=== PATIENT | female | born 1990 | race Two or more races ===

== ENCOUNTER 2021-07-12 05:51 | Inpatient (IN) | payer BC ==
[2021-07-12] MEDS ORDERED: Misoprostol 25 MCG (1/4 of 100 MCG) Tab ONE ×2 (08:34→08:35)
[2021-07-12] MEDS ORDERED: Sodium Chloride 0.9% 10 ML Syringe FLUSH PRN (08:53)
[2021-07-12] MEDS ORDERED: Misoprostol 25 MCG (1/4 of 100 MCG) Tab VAG PRN (08:53)
[2021-07-12] MEDS ORDERED: Nalbuphine 10 MG/1 ML Vial IVPUSH PRN (08:53)
[2021-07-12] MEDS ORDERED: Lactated Ringers 1,000 ML IV SCH (09:00)
[2021-07-12] MEDS ORDERED: Oxytocin/Lactated Ringers 10 UNIT/1,000 ML BAG IV SCH ×2 (09:00→20:45)
[2021-07-12] MEDS ORDERED: fentaNYL 100 MCG/2 ML SDV EPIDUR PRN (09:44)
[2021-07-12] MEDS ORDERED: ePHEDrine 50 MG/ML SDV IVPUSH PRN (09:44)
[2021-07-12] MEDS ORDERED: Bupivacaine/fentaNYL/NS 100 ML Bag EPIDUR PRN (09:44)
[2021-07-12] MEDS ORDERED: diphenhydrAMINE 50 MG/ML SDV IVPUSH PRN (09:44)
[2021-07-12] MEDS ORDERED: Ampicillin 2 GM in Sodium Chloride 0.9% 100 ML IV ONE (11:00)
[2021-07-12] MEDS: Acetaminophen 325 MG Tab PO PRN (12:10)
[2021-07-12] MEDS: Lactated Ringers 1,000 ML IV SCH ×4 (12:42→21:20)
[2021-07-12] MEDS: Sodium Chloride 0.9% 10 ML Syringe FLUSH SCH (12:50)
[2021-07-12] MEDS: Ampicillin 1 GM in Sodium Chloride 0.9% 100 ML IV SCH ×3 (14:20→22:07)
[2021-07-13] MEDS ORDERED: Bupivacaine 0.25% 10 ML SDV ONE
[2021-07-13] MEDS ORDERED: Lidocaine 2% with EPINEPHrine 1:200,000 20 ML SDV ONE
[2021-07-13] MEDS ORDERED: Sodium Bicarbonate 8.4% 50 MEQ/50 ML SDV ONE
[2021-07-13] MEDS: Ampicillin 1 GM in Sodium Chloride 0.9% 100 ML IV SCH ×2 (01:55→06:00)
[2021-07-13] MEDS: Sodium Chloride 0.9% 10 ML Syringe FLUSH SCH (01:55)
[2021-07-13] MEDS: Acetaminophen 325 MG Tab PO PRN (02:26)
[2021-07-13] MEDS ORDERED: Gentamicin 400 MG in Sodium Chloride 0.9% 100 ML IV SCH ×2 (04:00→04:15)
[2021-07-13] MEDS ORDERED: Gentamicin 40 MG/ML 2 ML Vial IV SCH (04:00)
[2021-07-13] MEDS: Lactated Ringers 1,000 ML IV SCH ×2 (04:47→04:52)
[2021-07-13] MEDS ORDERED: Sodium Chloride 0.9% 10 ML Syringe FLUSH PRN (06:24)
[2021-07-13] MEDS ORDERED: Metoclopramide 10 MG/2 ML SDV IVPUSH ONE (06:24)
[2021-07-13] MEDS ORDERED: Citric Acid/Sodium Citrate Solution 30 ML Cup PO ONE (06:24)
[2021-07-13] MEDS ORDERED: Azithromycin 500 MG in Sodium Chloride 0.9% 250 ML IV ONE (06:27)
[2021-07-13] MEDS ORDERED: Lactated Ringers 1,000 ML IV SCH (06:30)
[2021-07-13] MEDS ORDERED: Metoclopramide 10 MG/2 ML SDV ONE (06:33)
[2021-07-13] MEDS ORDERED: Citric Acid/Sodium Citrate Solution 30 ML Cup ONE (06:34)
[2021-07-13] MEDS ORDERED: Bupivacaine 0.5% 30 ML SDV ONE (06:38)
[2021-07-13] MEDS ORDERED: Ondansetron 4 MG/2 ML SDV ONE (07:09)
[2021-07-13] MEDS ORDERED: ceFAZolin 1 GM Vial ONE (07:09)
[2021-07-13] MEDS ORDERED: Oxytocin 10 Units/1 ML SDV ONE (07:16)
[2021-07-13] MEDS ORDERED: Lactated Ringers 1,000 ML ONE ×2 (07:25)
[2021-07-13] MEDS ORDERED: Morphine 10 MG/ML SDV ONE (07:30)
[2021-07-13] MEDS ORDERED: Morphine PF 10 MG/10 ML SDV ONE (07:30)
[2021-07-13] MEDS ORDERED: fentaNYL 100 MCG/2 ML SDV IVPUSH PRN (08:08)
[2021-07-13] MEDS ORDERED: Ondansetron 4 MG/2 ML SDV IVPUSH PRN (08:08)
[2021-07-13] MEDS ORDERED: diphenhydrAMINE 50 MG/ML SDV IVPUSH PRN ×2 (08:08→09:46)
[2021-07-13] MEDS ORDERED: Ketorolac 30 MG/ML SDV IVPUSH SCH (08:15)
[2021-07-13] MEDS ORDERED: Sodium Chloride 0.9% 10 ML Syringe FLUSH SCH (09:00)
[2021-07-13] MEDS ORDERED: Dextrose 5%-Lactated Ringers 1,000 ML IV SCH (09:46)
[2021-07-13] MEDS ORDERED: ePHEDrine 50 MG/ML SDV IVPUSH PRN (09:46)
[2021-07-13] MEDS ORDERED: Naloxone 0.4 MG/ML SDV IVPUSH PRN (09:46)
[2021-07-13] MEDS: Acetaminophen/oxyCODONE 325-5 MG Tab PO PRN ×3 (13:01→21:00)
[2021-07-13] MEDS: Ketorolac 30 MG/ML SDV IVPUSH SCH (15:50)
[2021-07-13] MEDS: Simethicone 80 MG Tab.Chew PO PRN (16:15)
[2021-07-13] MEDS: Ibuprofen 600 MG Tab PO PRN (23:07)
[2021-07-14] MEDS: Simethicone 80 MG Tab.Chew PO PRN (04:25)
[2021-07-14] MEDS: Acetaminophen/oxyCODONE 325-5 MG Tab PO PRN ×4 (04:27→20:03)
[2021-07-14] MEDS: Ketorolac 30 MG/ML SDV IVPUSH SCH ×2 (06:06→06:07)
[2021-07-14] MEDS: Docusate Sodium 100 MG Cap PO SCH ×2 (09:38→20:03)
[2021-07-15] MEDS: Ibuprofen 600 MG Tab PO PRN ×2 (00:57→09:58)
[2021-07-15] MEDS: Simethicone 80 MG Tab.Chew PO PRN (00:57)
[2021-07-15] MEDS: Acetaminophen/oxyCODONE 325-5 MG Tab PO PRN ×2 (04:25→13:34)
[2021-07-15] MEDS: Docusate Sodium 100 MG Cap PO SCH (09:58)
[2021-07-15] MEDS ORDERED: Polyethylene Glycol 3350 Powder 17 GM Packet PO ONE (13:44)
== END 2021-07-15 16:20 | disposition home or self-care (01) | DRG 540 ==
LOC: JD.OBCHECK 05:51 → JD.OB 06:04 → JD.OBCHECK 08:48 → OBSVTOIN 07-13 07:20 → JD.OB 07-13 07:21
PROVIDERS: ADMIT Obstetrics & Gynecology; ATTEND Obstetrics & Gynecology
PROC: 10D00Z1 Extraction of Products of Conception, Low, Open Approach (ICD-10-PCS; principal; 2021-07-13)
PROC: 3E0P7VZ Introduction of Hormone into Female Reproductive, Via Natural or Artificial Opening (ICD-10-PCS; 2021-07-13)
PROC: 10907ZC Drainage of Amniotic Fluid, Therapeutic from Products of Conception, Via Natural or Artificial Opening (ICD-10-PCS; 2021-07-13)
PROC: 10H07YZ Insertion of Other Device into Products of Conception, Via Natural or Artificial Opening (ICD-10-PCS; 2021-07-13)
DX: O48.0 Post-term pregnancy (principal); Z3A.40 40 weeks gestation of pregnancy; Z37.0 Single live birth; O62.2 Other uterine inertia; O99.824 Streptococcus B carrier state complicating childbirth; O76 Abnormality in fetal heart rate and rhythm complicating labor and delivery; O41.1230 Chorioamnionitis, third trimester, not applicable or unspecified; Z20.822 Contact with and (suspected) exposure to COVID-19
CPT/HCPCS: 01967; 01968; 36415; 51702; 59025; 85025; 86592; 86850; 86900; 86901; 94762; 99140; A9270-GY; C1726; J0290; J0456; J0690; J1580; J1885; J2270; J2274; J2300; J2405; J2590; J2765; J3010; J3490; J7050; J7120; U0002

== ENCOUNTER 2022-01-01 07:02 | Emergency (ER) | payer BC ==
[2022-01-01 09:16] LABS: CORONAVIRUS COVID-19 NAA POSITIVE (NEGATIVE)
[2022-01-01] MEDS ORDERED: Ketorolac 30 MG/ML SDV IVPUSH ONE (09:48)
[2022-01-01] MEDS ORDERED: Sodium Chloride 0.9% 1,000 ML IV ONE (09:48)
[2022-01-01] MEDS ORDERED: Metoclopramide 10 MG/2 ML SDV ONE (10:08)
[2022-01-01] MEDS: Metoclopramide 10 MG/2 ML SDV IVPUSH ONE ×2 (10:12→10:13)
== END 2022-01-01 12:35 | disposition home or self-care (01) ==
LOC: JD.ED 07:02
DX: U07.1 COVID-19 (principal)
CPT/HCPCS: 0241U; 96361; 96374; 96375; 99283; J1885; J2765; J7030

== ENCOUNTER 2023-02-11 16:49 | Emergency (ER) | payer BC ==
[2023-02-11 17:46] LABS: BASOPHILS PERCENT AUTO 0.4 % (0.0-1.0); EOSINOPHILS ABSOLUTE AUTO 0.1 K/mm3 (0.0-0.4); EOSINOPHILS PERCENT AUTO 0.9 % (0.0-6.0); HEMATOCRIT 35.4 % (37.0-47.0); HEMOGLOBIN 11.7 gm/dl (12.0-16.0); IMMATURE GRAN ABSOLUTE AUTO 0.04 K/mm3 (0.00-0.05); IMMATURE GRAN PERCENT AUTO 0.4 % (0.0-0.4); LYMPHOCYTES ABSOLUTE AUTO 2.9 K/mm3 (1.0-4.8); LYMPHOCYTES PERCENT AUTO 26.7 % (24.0-44.0); MEAN CORPUSCULAR HEMOGLOBIN 27.9 pg (28.0-32.0); MEAN CORPUSCULAR HGB CONC 33.1 g/dl (32.0-36.0); MEAN CORPUSCULAR VOLUME 84.5 fl (83.0-99.0); MEAN PLATELET VOLUME 9.6 fl (9.4-12.3); MONOCYTES ABSOLUTE AUTO 0.7 K/mm3 (0.0-0.8); MONOCYTES PERCENT AUTO 6.1 % (0.0-8.0); NEUTROPHILS ABSOLUTE AUTO 7.2 K/mm3 (1.8-7.7); NEUTROPHILS PERCENT AUTO 65.5 % (41.0-71.0); PLATELET COUNT,PLT 225 K/mm3 (150-400); RED BLOOD CELL COUNT 4.19 M/mm3 (4.10-5.30); WHITE BLOOD CELL COUNT,WBC 10.93 K/mm3 (3.9-11.3)
[2023-02-11 19:41] LABS: APPEARANCE,URINE CLEAR (Clear); BILIRUBIN,URINE NEGATIVE (Negative); COLOR,URINE YELLOW (Yellow); GLUCOSE,URINE NEGATIVE (Negative); KETONES,URINE NEGATIVE (Negative); LEUKOCYTE ESTERASE,URINE NEGATIVE (Negative); NITRITE,URINE NEGATIVE (Negative); OCCULT BLOOD,URINE 2+ (Negative); PH,URINE 6.5 (5.0-8.0); PROTEIN,URINE NEGATIVE (Negative); UROBILINOGEN,URINE 0.2 (0.2-1.0)
[2023-02-11 20:09] LABS: BACTERIA,URINE FEW /hpf (FEW); MUCUS,URINE NOT SEEN /hpf (FEW); SQUAMOUS EPITHELIAL CELLS,UR 0-5 /hpf (0-5); WBC,URINE 0-5 /hpf (0-5)
== END 2023-02-11 20:47 | disposition home or self-care (01) ==
LOC: JD.ED 16:49
DX: O20.0 Threatened abortion (principal)
CPT/HCPCS: 36415; 76817; 76817-26; 81001; 84702; 85025; 86900; 86901; 99282; 99284

== ENCOUNTER 2024-08-29 00:04 | Inpatient (IN) | payer BC ==
[~2024-08-29 00:04] MED LIST: Lactated Ringers 1,000 ML IV SCH; Sodium Chloride 0.9% 10 ML Syringe FLUSH PRN
[2024-08-29] MEDS ORDERED: Lactated Ringers 1,000 ML IV SCH (00:15)
[2024-08-29] MEDS ORDERED: Oxytocin/0.9 % Sodium Chloride 30 UNIT/500 ML BAG ONE (04:49)
[2024-08-29] MEDS ORDERED: Citric Acid/Sodium Citrate Solution 30 ML Cup PO ONE (05:00)
[2024-08-29] MEDS ORDERED: Oxytocin/0.9 % Sodium Chloride 30 UNIT/500 ML BAG IV SCH (05:00)
[2024-08-29] MEDS ORDERED: Metoclopramide 10 MG/2 ML SDV IVPUSH ONE (05:00)
[2024-08-29] MEDS ORDERED: Bupivacaine 0.75%/D5W 2 ML Amp ONE (05:07)
[2024-08-29] MEDS ORDERED: ePHEDrine 50 MG/ML SDV ONE (05:07)
[2024-08-29] MEDS ORDERED: ceFAZolin 2 GM Vial ONE (05:07)
[2024-08-29] MEDS ORDERED: Morphine PF 10 MG/10 ML SDV ONE (05:07)
[2024-08-29] MEDS ORDERED: Ondansetron 4 MG/2 ML SDV ONE (05:07)
[2024-08-29] MEDS ORDERED: Ketorolac 30 MG/ML SDV ONE (05:07)
[2024-08-29 05:13] LABS: BASOPHILS PERCENT AUTO 0.2 % (0.0-1.0); EOSINOPHILS ABSOLUTE AUTO 0.1 K/mm3 (0.0-0.4); HEMATOCRIT 37.1 % (37.0-47.0); HEMOGLOBIN 12.3 gm/dl (12.0-16.0); IMMATURE GRAN ABSOLUTE AUTO 0.04 K/mm3 (0.00-0.05); IMMATURE GRAN PERCENT AUTO 0.5 % (0.0-0.4); LYMPHOCYTES ABSOLUTE AUTO 2.2 K/mm3 (1.0-4.8); LYMPHOCYTES PERCENT AUTO 25.9 % (24.0-44.0); MEAN CORPUSCULAR HEMOGLOBIN 28.1 pg (28.0-32.0); MEAN CORPUSCULAR HGB CONC 33.2 g/dl (32.0-36.0); MEAN CORPUSCULAR VOLUME 84.9 fl (83.0-99.0); MEAN PLATELET VOLUME 10.5 fl (9.4-12.3); MONOCYTES ABSOLUTE AUTO 0.5 K/mm3 (0.0-0.8); MONOCYTES PERCENT AUTO 5.6 % (0.0-8.0); NEUTROPHILS ABSOLUTE AUTO 5.6 K/mm3 (1.8-7.7); NEUTROPHILS PERCENT AUTO 66.8 % (41.0-71.0); PLATELET COUNT,PLT 159 K/mm3 (150-400); RED BLOOD CELL COUNT 4.37 M/mm3 (4.10-5.30); WHITE BLOOD CELL COUNT,WBC 8.39 K/mm3 (3.9-11.3)
[2024-08-29] MEDS ORDERED: Dexamethasone 4 MG/ML SDV ONE (05:30)
[2024-08-29] MEDS ORDERED: Lactated Ringers 1,000 ML IV ONE (05:45)
[2024-08-29] MEDS: Bupivacaine 0.5% 10 ML SDV ONE (06:13)
[2024-08-29] MEDS ORDERED: ePHEDrine 50 MG/ML SDV IVPUSH PRN (09:08)
[2024-08-29] MEDS ORDERED: diphenhydrAMINE 50 MG/ML SDV IVPUSH PRN ×2 (09:08→09:10)
[2024-08-29] MEDS ORDERED: Naloxone 0.4 MG/ML SDV IVPUSH PRN (09:08)
[2024-08-29] MEDS ORDERED: Acetaminophen/oxyCODONE 325-5 MG Tab PO PRN (09:08)
[2024-08-29] MEDS ORDERED: Ondansetron 4 MG/2 ML SDV IVPUSH PRN (09:10)
[2024-08-29] MEDS ORDERED: fentaNYL 100 MCG/2 ML SDV IVPUSH PRN (09:10)
[2024-08-29] MEDS ORDERED: Meperidine 50 MG/ML Vial IVPUSH PRN (09:10)
[2024-08-29] MEDS: Dextrose 5%-Lactated Ringers 1,000 ML IV SCH (10:35)
[2024-08-29] MEDS: Ketorolac 30 MG/ML SDV IVPUSH SCH (12:27)
[2024-08-30] MEDS: Acetaminophen 325 MG Tab PO PRN (02:17)
[2024-08-30 05:37] LABS: BASOPHILS PERCENT AUTO 0.2 % (0.0-1.0); EOSINOPHILS PERCENT AUTO 0.3 % (0.0-6.0); HEMATOCRIT 30.5 % (37.0-47.0); IMMATURE GRAN ABSOLUTE AUTO 0.05 K/mm3 (0.00-0.05); IMMATURE GRAN PERCENT AUTO 0.4 % (0.0-0.4); LYMPHOCYTES ABSOLUTE AUTO 2.5 K/mm3 (1.0-4.8); LYMPHOCYTES PERCENT AUTO 21.9 % (24.0-44.0); MEAN CORPUSCULAR HEMOGLOBIN 28.3 pg (28.0-32.0); MEAN CORPUSCULAR HGB CONC 32.8 g/dl (32.0-36.0); MEAN CORPUSCULAR VOLUME 86.4 fl (83.0-99.0); MEAN PLATELET VOLUME 10.8 fl (9.4-12.3); MONOCYTES ABSOLUTE AUTO 0.7 K/mm3 (0.0-0.8); MONOCYTES PERCENT AUTO 6.2 % (0.0-8.0); NEUTROPHILS ABSOLUTE AUTO 7.9 K/mm3 (1.8-7.7); PLATELET COUNT,PLT 151 K/mm3 (150-400); RED BLOOD CELL COUNT 3.53 M/mm3 (4.10-5.30); WHITE BLOOD CELL COUNT,WBC 11.18 K/mm3 (3.9-11.3)
[2024-08-30] MEDS: Ibuprofen 600 MG Tab PO SCH (05:59)
[2024-08-30] MEDS: Sodium Chloride 0.9% 10 ML Syringe FLUSH SCH ×2 (08:49→11:00)
[2024-08-30] MEDS: ceFAZolin 2 GM in Sodium Chloride 0.9% 50 ML IV ONE (11:00)
[2024-08-30] MEDS: Acetaminophen/oxyCODONE 325-5 MG Tab PO PRN (21:18)
[2024-08-31] MEDS: Magnesium Hydroxide 400 MG/5 ML Susp 30 ML Cup PO ONE (09:41)
== END 2024-08-31 14:28 | disposition home or self-care (01) | DRG 540 ==
LOC: JD.OB 00:04
PROVIDERS: ADMIT Obstetrics & Gynecology; ATTEND Obstetrics & Gynecology
PROC: 10D00Z1 Extraction of Products of Conception, Low, Open Approach (ICD-10-PCS; principal; 2024-08-29 06:00)
DX: O42.02 Full-term premature rupture of membranes, onset of labor within 24 hours of rupture (principal); O34.211 Maternal care for low transverse scar from previous cesarean delivery; O99.824 Streptococcus B carrier state complicating childbirth; Z3A.40 40 weeks gestation of pregnancy; Z37.0 Single live birth
CPT/HCPCS: 36415; 59025; 85025; 86592; 86850; 86900; 86901; 94762; A9270-GY; J0665; J0690; J1100; J1885; J2274; J2405; J3490; J7120; J7121

== ENCOUNTER 2025-03-08 17:44 | Emergency (ER) | payer BC ==
[2025-03-08 19:02] LABS: CORONAVIRUS COVID-19 NAA NEGATIVE (NEGATIVE); INFLUENZA A NAA NEGATIVE (NEGATIVE); RESPIRATORY SYNCYTIAL VIR NAA NEGATIVE (NEGATIVE)
== END 2025-03-08 20:15 | disposition home or self-care (01) ==
LOC: JD.ED 17:44
DX: J04.0 Acute laryngitis (principal); J98.8 Other specified respiratory disorders; B97.89 Other viral agents as the cause of diseases classified elsewhere; Z86.16 Personal history of COVID-19
CPT/HCPCS: 87637; 87651; 99283